=== PATIENT | female | born 1960 | race Caucasian/White ===

== ENCOUNTER 2017-01-15 18:16 | Emergency (ER) | payer MEDICARE ==
[2017-01-15 18:46] VITALS: BP 129/78
--- NOTE | 2017-01-15 18:59 | UC ---
Knee Pain HPI - HPI Summary HPI Summary: Slipped in water at home, L knee twisted underneath her so foot moved back and to the side. Denies hitting knee on anything. Was able to bear weight for a bit but now in too much pain. No hx of fx or sx. - History of Current Complaint Chief Complaint: UCLowerExtremity Stated Complaint: KNEE INJURY Time Seen by Provider: 01/15/17 18:48 Hx Obtained From: Patient ?: No Onset/Duration: Sudden Onset Severity Initially: Moderate Severity Currently: Moderate Character: Sharp, Dull, Stiffness Aggravating Factor(s): Movement, Weight Bearing Alleviating Factor(s): Rest Associated Signs And Symptoms: Positive: Swelling Able to Bear Weight: No - was initially - Allergies/Home Medications Allergies/Adverse Reactions: Allergies Allergy/AdvReac Type Severity Reaction Status Date / Time Cephalexin [From Keflex] Allergy Intermediate Hives Verified 01/15/17 18:37 PMH/Surg Hx/FS Hx/Imm Hx Endocrine History Of: Denies: Diabetes, Thyroid Disease Cardiovascular History Of: Denies: Cardiac Disorders, Hypertension Respiratory History Of: Reports: Asthma - PRN INHALER Denies: COPD GI/ History Of: Denies: Ulcer - Surgical History Surgical History: Yes Surgery Procedure, Year, and Place: hysterectomy 2002 - Family History Known Family History: Positive: Hypertension - Social History Lives: With Family Alcohol Use: None Substance Use Type: None Smoking Status (MU): Light Every Day Tobacco Smoker Amount Used/How Often: <1/2 PPD X 38 YEARS - Immunization History Most Recent Influenza Vaccination: 07/2015 Most Recent Pneumonia Vaccination: none Review of Systems Constitutional: Negative Skin: Negative Eyes: Negative ENT: Negative Respiratory: Negative Cardiovascular: Negative Gastrointestinal: Negative Genitourinary: Negative Motor: Negative Neurovascular: Negative Musculoskeletal: Arthralgia - L knee Neurological: Negative Psychological: Negative All Other Systems Reviewed And Are Negative: Yes Physical Exam Triage Information Reviewed: Yes Appearance: Well-Appearing, Well-Nourished Vital Signs: Initial Vital Signs Temp 99.4 F 01/15/17 18:39 Pulse 84 01/15/17 18:39 Resp 16 01/15/17 18:39 BP 129/78 01/15/17 18:39 Pulse Ox 98 01/15/17 18:39 Vital Signs Reviewed: Yes Eye Exam: Normal Eyes: Positive: Conjunctiva Clear ENT: Positive: Hearing grossly normal, Pharyngeal erythema - exudate notable in posterior pharynx, TMs normal Dental Exam: Other - dentures Neck exam: Normal Neck: Positive: Supple Respiratory Exam: Normal Respiratory: Positive: Chest non-tender, Lungs clear, Normal breath sounds, No respiratory distress, No accessory muscle use Cardiovascular Exam: Normal Cardiovascular: Positive: RRR, No Murmur Musculoskeletal: Positive: ROM Limited @ - L knee Neurological Exam: Normal Neurological: Positive: Alert Psychological Exam: Normal Skin Exam: Normal Knee Pain Course/Dx - Differential Dx/Diagnosis Provider Diagnoses: pharyngitis. elevated blood pressure due to discomfort Discharge - Discharge Plan Condition: Stable Disposition: HOME Prescriptions: Cephalexin CAP* [Keflex 500 CAP*] 500 mg PO BID #[id number] cap Patient Education Materials: Pharyngitis (ED) Referrals: Pito Huynh MD [Primary Care Provider] -
[2017-01-15] MEDS ORDERED: Cephalexin CAP* 500 MG PO ONE (19:05)
[2017-01-15] MEDS ORDERED: Ibuprofen PED LIQ* 100 MG/5 ML UDC PO ONE (19:05)
--- NOTE | 2017-01-15 19:25 | RAD ---
HISTORY: Twisting injury, left knee COMPARISONS: None VIEWS: 4, Frontal, lateral, axial, and oblique views of the left knee FINDINGS: BONE DENSITY: Normal. BONES: There is no displaced fracture. JOINTS: There is no arthropathy. There is no suprapatellar joint effusion or lipohemarthrosis. ALIGNMENT: There is no dislocation. SOFT TISSUES: Unremarkable. OTHER FINDINGS: None. IMPRESSION: NO ACUTE OSSEOUS INJURY. IF SYMPTOMS PERSIST, RECOMMEND REPEAT IMAGING.
[2017-01-15] MEDS ORDERED: Ibuprofen TAB* 600 MG PO ONE (19:33)
== END 2017-01-15 20:02 | disposition home or self-care (01) ==
LOC: UCEAST 18:16
DX: J02.9 Acute pharyngitis, unspecified (principal); R03.0 Elevated blood-pressure reading, without diagnosis of hypertension; J45.909 Unspecified asthma, uncomplicated; F17.210 Nicotine dependence, cigarettes, uncomplicated; Z88.3 Allergy status to other anti-infective agents
CPT/HCPCS: 99211; A9270-GY; G0463